=== PATIENT | female | born 1975 | race Caucasian/White ===

== ENCOUNTER 2016-05-22 22:04 | Inpatient (IN) | payer OTHER, BC ==
[~2016-05-22] VITALS: Ht 152.4 cm; Wt 103.6 kg
[~2016-05-22 22:04] MED LIST: CYANOCOBALAM1000 MCG PO; FISH OIL300 MG PO; FLUOXETINE HCL10 MG PO; LEVOTHYROXINE88 MCG PO; MOTRIN400 MG PO; PRENATAL VITAM1 EAC2 PO; PROAIR HFA8.5 GM IH; VITAMIN D-32000 UNI2 PO; VITAMIN D10000 UNIT PO; ZOFRAN ODT4 MG PO
[2016-05-22 22:55] LABS: HEMATOCRIT 36.8 % (36.0-46.0); MCH 30.3 PG (29.0-34.0); MCHC 34.8 G/DL (30.0-36.0); MCV 87.2 FL (83-99); PLATELET COUNT 318 K/uL (156-360); RBC DIS.WIDTH-CV 13.3 % (11.8-14.6); RBC DIS.WIDTH-SD 40.8 % (39-53); RED BLOOD COUNT 4.22 M/uL (3.80-5.20); WHITE BLOOD COUNT 11.6 K/uL (4.1-10.2)
[2016-05-22 23:05] LABS: CHLORIDE 107 mEq/L (99-109); POTASSIUM 3.3 mEq/L (3.7-5.4); SODIUM 138 mEq/L (136-147)
[2016-05-22 23:07] LABS: ADD MIUA? YES; BILIRUBIN NEGATIVE; BLOOD NEGATIVE; COLOR YELLOW ((YELLOW)); GLUCOSE (STRIP) NEGATIVE; KETONES NEGATIVE; LEUKOCYTES NEGATIVE; NITRITE NEGATIVE; PH, URINE 6.5 (5-8); PROTEIN (STRIP) TRACE; SPECIFIC GRAVITY 1.027 (1.000-1.030); UROBILINOGEN 0.2 MG/DL (0.2-1.0)
[2016-05-22 23:07] LABS: GLUCOSE 88 mg/dL (70-99)
[2016-05-22 23:08] LABS: ANION GAP 9 MEQ/L (2-14)
[2016-05-22 23:09] LABS: TOTAL BILIRUBIN 0.2 mg/dL (0.0-1.0)
[2016-05-22 23:11] LABS: ALKALINE PHOSPHATASE 63 IU/L (3-129); GFR ESTIMATE (CALCULATED) > 59 mL/min/
[2016-05-22 23:12] LABS: UREA NITROGEN (BUN) 8 mg/dL (9-23)
[2016-05-22 23:14] LABS: LIPASE 47 U/L (1.0-51.0)
[2016-05-22 23:32] LABS: AMORPHOUS PHOSPHATE CRYSTALS 1+; BACTERIA 1+; CASTS PRESENT /LPF; CRYSTALS PRESENT; EPITHELIAL CELLS RARE; FINE GRANULAR CASTS 0-5 /LPF; MUCUS NONE SEEN; RED BLOOD CELLS NONE SEEN /HPF (0-5); UCUL ADDED? NO; WHITE BLOOD CELLS NONE SEEN /HPF (0-5)
[2016-05-22 23:50] LABS: QUANTITATIVE HCG 70102.5 MIU/ML
[2016-05-23 04:00] VITALS: BP 103/50
[2016-05-23 08:00] VITALS: BP 95/51
[2016-05-23 12:04] LABS: HEMATOCRIT 33.3 % (36.0-46.0); MCH 30.9 PG (29.0-34.0); MCHC 34.8 G/DL (30.0-36.0); MCV 88.8 FL (83-99); PLATELET COUNT 261 K/uL (156-360); RBC DIS.WIDTH-CV 13.5 % (11.8-14.6); RBC DIS.WIDTH-SD 43.9 % (39-53); RED BLOOD COUNT 3.75 M/uL (3.80-5.20); WHITE BLOOD COUNT 10.5 K/uL (4.1-10.2)
[2016-05-23 16:15] VITALS: BP 111/54
[2016-05-23 19:45] VITALS: BP 112/58
[2016-05-23 23:47] VITALS: BP 123/61
[2016-05-24 03:44] VITALS: BP 114/57
[2016-05-24 07:23] LABS: HEMATOCRIT 33.9 % (36.0-46.0); MCH 30.6 PG (29.0-34.0); MCHC 34.2 G/DL (30.0-36.0); MCV 89.4 FL (83-99); MEAN PLAT.VOLUME 9.6 uM^3 (9.5-12.4); PLATELET COUNT 258 K/uL (156-360); RBC DIS.WIDTH-CV 13.4 % (11.8-14.6); RED BLOOD COUNT 3.79 M/uL (3.80-5.20)
[2016-05-24 07:31] LABS: ANION GAP 4 MEQ/L (2-14); CHLORIDE 104 MEQ/L (99-109); GFR ESTIMATE (CALCULATED) > 59 mL/min/; GLUCOSE 101 mg/dL (70-99); POTASSIUM 4.3 MEQ/L (3.7-5.4); SAMPLE HEMOLYSIS CHECK 0; SAMPLE ICTERIC CHECK 0; SAMPLE LIPEMIA CHECK 0; SODIUM 133 MEQ/L (136-147); UREA NITROGEN (BUN) 7 mg/dL (9-23)
[2016-05-24 08:00] VITALS: BP 129/67
[2016-05-24 11:38] VITALS: BP 121/64
[2016-05-24] MEDS ORDERED: MOVE IT ALONG100 MG PO (13:14)
[2016-05-24] MEDS ORDERED: TYLENOL REGULA325 MG PO (13:15)
[2016-05-24] MEDS ORDERED: BENADRYL25 MG PO (13:16)
[2016-05-24] MEDS ORDERED: HYDROMORPHONE HC2 MG PO (14:45)
== END 2016-05-24 15:41 | disposition home or self-care (01) | DRG 781 ==
LOC: RME 22:04 → EME 22:04 → EDOF 05-23 02:59 → 5WEST 05-23 03:48 → 2EAST 05-23 16:01
PROVIDERS: Surgery
PROC: 0DTJ4ZZ Resection of Appendix, Percutaneous Endoscopic Approach (ICD-10-PCS; principal; 2016-05-23)
DX: O99.611 Diseases of the digestive system complicating pregnancy, first trimester (principal); R10.31 Right lower quadrant pain; Z68.41 Body mass index [BMI] 40.0-44.9, adult; O99.331 Smoking (tobacco) complicating pregnancy, first trimester; O99.281 Endocrine, nutritional and metabolic diseases complicating pregnancy, first trimester; E03.9 Hypothyroidism, unspecified; F17.210 Nicotine dependence, cigarettes, uncomplicated; K66.0 Peritoneal adhesions (postprocedural) (postinfection); O99.211 Obesity complicating pregnancy, first trimester; E66.01 Morbid (severe) obesity due to excess calories; O21.1 Hyperemesis gravidarum with metabolic disturbance; Z3A.09 9 weeks gestation of pregnancy; Z88.6 Allergy status to analgesic agent; Z88.8 Allergy status to other drugs, medicaments and biological substances
CPT/HCPCS: 76705; 76801; 80048; 80053; 81003; 83690; 84702; 85027; 88304; 99202; 99281; 99285; J0131; J0330; J1100; J1170; J2270; J2405; J2710; J3010; J3480; J7030

== ENCOUNTER 2016-09-14 10:46 | Outpatient (CLI) | payer BC ==
[~2016-09-14] VITALS: Ht 177.8 cm; Wt 108.6 kg
[~2016-09-14 10:46] MED LIST changes: +BENADRYL25 MG PO; +HYDROMORPHONE HC2 MG PO; +MOVE IT ALONG100 MG PO; +TYLENOL REGULA325 MG PO
[2016-09-14 11:11] VITALS: BP 122/64
[2016-09-14 13:08] LABS: ADD MIUA? NO; BILIRUBIN NEGATIVE; BLOOD NEGATIVE; COLOR STRAW ((YELLOW)); GLUCOSE (STRIP) NEGATIVE; KETONES NEGATIVE; LEUKOCYTES NEGATIVE; NITRITE NEGATIVE; PROTEIN (STRIP) NEGATIVE; SPECIFIC GRAVITY 1.003 (1.000-1.030); UCUL ADDED? NO; UROBILINOGEN 0.2 MG/DL (0.2-1.0)
[2016-09-14 13:16] VITALS: BP 117/55
[2016-09-14] MEDS ORDERED: LEVO-T25 MCG PO (13:25)
[2016-09-14] MEDS ORDERED: TYLENOL EXTRA500 MG PO (13:27)
[2016-09-14 13:30] LABS: BASOPHIL COUNT 0.1 K/uL (0-0.1); EOSINOPHIL COUNT 0.3 K/uL (0-0.3); HEMATOCRIT 35.3 % (36.0-46.0); IMMATURE GRANULOCYTE (%) 0.8 % (0.0-0.7); IMMATURE GRANULOCYTE COUNT 0.1 K/uL; INSTRUMENT ABS NEUTROPHIL CT 10.5 K/uL; LYMPHOCYTE COUNT 2.8 K/uL (1.0-2.8); MCH 31.4 PG (29.0-34.0); MCHC 34.8 G/DL (30.0-36.0); MCV 90.1 FL (83-99); MEAN PLAT.VOLUME 9.3 uM^3 (9.5-12.4); MONOCYTE (%) 3.9 % (3-12); MONOCYTE COUNT 0.6 K/uL (0-0.8); NEUTROPHIL (%) 73.5 % (45-76); NEUTROPHIL COUNT 10.5 K/uL (1.8-6.4); PLATELET COUNT 294 K/uL (156-360); RBC DIS.WIDTH-CV 13.3 % (11.8-14.6); RBC DIS.WIDTH-SD 44.1 % (39-53); RED BLOOD COUNT 3.92 M/uL (3.80-5.20); WHITE BLOOD COUNT 14.3 K/uL (4.1-10.2)
[2016-09-14 15:16] VITALS: BP 124/61
[2016-09-14 16:43] LABS: AMPHETAMINES QUANT VALUE 0 NG/ML; BARBITUATES QUANT VALUE 0 NG/ML; BENZODIAZEPINES QUANT VALUE 0 NG/ML; BENZODIAZEPINES, URINE SCREEN Negative (200 ng/mL); MARIJUANA QUANT VALUE 0 NG/ML; OPIATES QUANTITATIVE VALUE 0 NG/ML; PHENCYCLIDINE QUANT VALUE 0 NG/ML
[2016-09-14 20:19] LABS: CANDIDA DNA PROBE NEGATIVE; GARDNERELLA DNA PROBE NEGATIVE; INTERNAL CONTROL VALID? YES
[2016-09-15 12:32] LABS: CHLAMYDIA TRACHOMATIS NEGATIVE; NEISSERIA GONORRHOEAE NEGATIVE
== END 2016-09-14 16:50 | disposition home or self-care (01) ==
LOC: LDRP-OP 10:46 → 2WEST 10:47
PROVIDERS: Advanced Practice Midwife; Obstetrics & Gynecology Obstetrics
DX: O60.02 Preterm labor without delivery, second trimester (principal); Z3A.24 24 weeks gestation of pregnancy; O09.522 Supervision of elderly multigravida, second trimester; O99.282 Endocrine, nutritional and metabolic diseases complicating pregnancy, second trimester; E03.9 Hypothyroidism, unspecified; O99.332 Smoking (tobacco) complicating pregnancy, second trimester; F17.200 Nicotine dependence, unspecified, uncomplicated; Q63.0 Accessory kidney
CPT/HCPCS: 59025; 76805; 80306 90; 81003; 82731; 84439; 84443; 85025; 87086; 87480; 87491; 87510; 87591; 87660; G0378; J7120

== ENCOUNTER 2016-11-19 19:08 | Outpatient (CLI) | payer BC ==
[~2016-11-19 19:08] MED LIST changes: +LEVO-T25 MCG PO; +TYLENOL EXTRA500 MG PO
[2016-11-19 19:30] VITALS: BP 124/65
[2016-11-19 20:00] VITALS: BP 121/69
[2016-11-19 20:13] LABS: BASOPHIL COUNT 0.1 K/uL (0-0.1); EOSINOPHIL COUNT 0.4 K/uL (0-0.3); HEMATOCRIT 34.3 % (36.0-46.0); IMMATURE GRANULOCYTE (%) 1.1 % (0.0-0.7); IMMATURE GRANULOCYTE COUNT 0.2 K/uL; INSTRUMENT ABS NEUTROPHIL CT 13.4 K/uL; LYMPHOCYTE COUNT 3.9 K/uL (1.0-2.8); MCH 32.4 PG (29.0-34.0); MCHC 36.2 G/DL (30.0-36.0); MCV 89.6 FL (83-99); MEAN PLAT.VOLUME 9.6 uM^3 (9.5-12.4); MONOCYTE (%) 4.3 % (3-12); MONOCYTE COUNT 0.8 K/uL (0-0.8); NEUTROPHIL (%) 71.6 % (45-76); NEUTROPHIL COUNT 13.4 K/uL (1.8-6.4); PLATELET COUNT 309 K/uL (156-360); RBC DIS.WIDTH-CV 13.5 % (11.8-14.6); RBC DIS.WIDTH-SD 44.1 % (39-53); RED BLOOD COUNT 3.83 M/uL (3.80-5.20); WHITE BLOOD COUNT 18.7 K/uL (4.1-10.2)
[2016-11-19 20:15] LABS: ADD MIUA? YES; BILIRUBIN NEGATIVE; BLOOD NEGATIVE; COLOR YELLOW ((YELLOW)); GLUCOSE (STRIP) NEGATIVE; KETONES NEGATIVE; LEUKOCYTES NEGATIVE; NITRITE NEGATIVE; PROTEIN (STRIP) NEGATIVE; SPECIFIC GRAVITY 1.011 (1.000-1.030); UROBILINOGEN 0.2 MG/DL (0.2-1.0)
[2016-11-19 20:30] LABS: UR CREATININE CONCENTRATION 83.6 MG/DL
[2016-11-19 20:31] VITALS: BP 118/65
[2016-11-19 20:36] LABS: ALKALINE PHOSPHATASE 107 IU/L (3-129); ANION GAP 7 MEQ/L (2-14); CHLORIDE 103 MEQ/L (99-109); GFR ESTIMATE (CALCULATED) > 59 mL/min/; GLUCOSE 98 mg/dL (70-99); LACTATE DEHYDROGENASE 115 IU/L (20-246); POTASSIUM 2.9 MEQ/L (3.7-5.4); SAMPLE HEMOLYSIS CHECK 0; SAMPLE ICTERIC CHECK 0; SAMPLE LIPEMIA CHECK 0; SODIUM 134 MEQ/L (136-147); TOTAL BILIRUBIN 0.2 MG/DL (0.0-1.0); UREA NITROGEN (BUN) 5 mg/dL (9-23); URIC ACID 3.4 mg/dL (3.1-9.2)
[2016-11-19 20:41] LABS: BACTERIA RARE /HPF; EPITHELIAL CELLS NONE SEEN /HPF; MUCUS 1+ /LPF; RED BLOOD CELLS 0-5 /HPF (0-5); UCUL ADDED? NO; WHITE BLOOD CELLS 0-5 /HPF (0-5)
[2016-11-19 21:01] VITALS: BP 114/58
[2016-11-19 21:31] VITALS: BP 112/56
== END 2016-11-19 22:15 | disposition home or self-care (01) ==
LOC: LDRP-OP 19:08 → 2WEST 19:09 → LDRP-OP 01-30 17:28
PROVIDERS: Advanced Practice Midwife
DX: O26.893 Other specified pregnancy related conditions, third trimester (principal); R51 Headache; O12.03 Gestational edema, third trimester; Z3A.34 34 weeks gestation of pregnancy; R10.9 Unspecified abdominal pain; H53.8 Other visual disturbances; K21.9 Gastro-esophageal reflux disease without esophagitis; O99.283 Endocrine, nutritional and metabolic diseases complicating pregnancy, third trimester; E03.9 Hypothyroidism, unspecified; Q63.0 Accessory kidney; O99.333 Smoking (tobacco) complicating pregnancy, third trimester; F17.210 Nicotine dependence, cigarettes, uncomplicated
CPT/HCPCS: 59025; 80053; 81003; 82570; 83615; 84156; 84550; 85025; 87086; G0378

== ENCOUNTER 2016-11-21 20:15 | Outpatient (CLI) | payer BC ==
[~2016-11-21] VITALS: Ht 177.8 cm; Wt 116.6 kg
[2016-11-21 20:31] VITALS: BP 134/71
[2016-11-21] MEDS ORDERED: K-TAB10 MEQ PO (20:41)
[2016-11-21 22:03] LABS: BASOPHIL COUNT 0.1 K/uL (0-0.1); EOSINOPHIL (%) 1.5 % (0-5); EOSINOPHIL COUNT 0.3 K/uL (0-0.3); HEMATOCRIT 38.7 % (36.0-46.0); IMMATURE GRANULOCYTE (%) 1.1 % (0.0-0.7); IMMATURE GRANULOCYTE COUNT 0.2 K/uL; INSTRUMENT ABS NEUTROPHIL CT 14.5 K/uL; LYMPHOCYTE COUNT 4.2 K/uL (1.0-2.8); MCH 31.4 PG (29.0-34.0); MCHC 35.1 G/DL (30.0-36.0); MCV 89.4 FL (83-99); MEAN PLAT.VOLUME 9.8 uM^3 (9.5-12.4); MONOCYTE (%) 4.1 % (3-12); MONOCYTE COUNT 0.8 K/uL (0-0.8); NEUTROPHIL (%) 72.4 % (45-76); NEUTROPHIL COUNT 14.5 K/uL (1.8-6.4); PLATELET COUNT 338 K/uL (156-360); RBC DIS.WIDTH-CV 13.3 % (11.8-14.6); RBC DIS.WIDTH-SD 43.6 % (39-53); RED BLOOD COUNT 4.33 M/uL (3.80-5.20); WHITE BLOOD COUNT 20.1 K/uL (4.1-10.2)
[2016-11-21 22:32] LABS: ADD MIUA? NO; BILIRUBIN NEGATIVE; BLOOD NEGATIVE; COLOR YELLOW ((YELLOW)); GLUCOSE (STRIP) NEGATIVE; KETONES NEGATIVE; LEUKOCYTES NEGATIVE; NITRITE NEGATIVE; PROTEIN (STRIP) NEGATIVE; SPECIFIC GRAVITY 1.005 (1.000-1.030); UROBILINOGEN 0.2 MG/DL (0.2-1.0)
[2016-11-21 22:46] LABS: ALKALINE PHOSPHATASE 116 IU/L (3-129); ANION GAP 11 MEQ/L (2-14); CHLORIDE 103 MEQ/L (99-109); GFR ESTIMATE (CALCULATED) > 59 mL/min/; GLUCOSE 87 mg/dL (70-99); SAMPLE HEMOLYSIS CHECK 0; SAMPLE ICTERIC CHECK 0; SAMPLE LIPEMIA CHECK 0; SODIUM 134 MEQ/L (136-147); UREA NITROGEN (BUN) 5 mg/dL (9-23)
[2016-11-21 22:47] LABS: POTASSIUM 3.5 MEQ/L (3.7-5.4); TOTAL BILIRUBIN 0.3 MG/DL (0.0-1.0)
[2016-11-21 22:49] LABS: AMPHETAMINE NEGATIVE (500 ng/mL); BARBITURATES NEGATIVE (200 ng/mL); BENZODIAZEPINES NEGATIVE (150 ng/mL); COCAINE NEGATIVE (150 ng/mL); INTERNAL CONTROLS VALID? YES; METHADONE NEGATIVE (200 ng/mL); METHAMPHETAMINE NEGATIVE (500 ng/mL); OPIATES (MORPHINE) NEGATIVE (100 ng/mL); OXYCODONE NEGATIVE (100 ng/mL); PHENCYCLIDINE NEGATIVE (25 ng/mL); PROPOXYPHENE NEGATIVE (300 ng/mL); THC CANNABINOIDS NEGATIVE (50 ng/mL); TRICYCLIC ANTIDEPRESSANTS NEGATIVE (300 ng/mL)
[2016-11-21 23:22] VITALS: BP 115/65
[2016-11-22 00:35] LABS: INFLUENZA A VIRAL ANTIGEN NEGATIVE; INFLUENZA B VIRAL ANTIGEN NEGATIVE
[2016-11-22 02:31] VITALS: BP 123/57
== END 2016-11-22 04:00 | disposition home or self-care (01) ==
LOC: LDRP-OP 20:15 → 2WEST 20:17 → LDRP-OP 01-30 23:15
PROVIDERS: Advanced Practice Midwife; Obstetrics & Gynecology
DX: O26.893 Other specified pregnancy related conditions, third trimester (principal); R60.0 Localized edema; R51 Headache; E87.6 Hypokalemia; R07.89 Other chest pain; R00.0 Tachycardia, unspecified; R53.1 Weakness; O09.523 Supervision of elderly multigravida, third trimester; Z3A.34 34 weeks gestation of pregnancy
CPT/HCPCS: 59025; 71020; 71275; 80053; 81003; 84132; 84443; 85025; 87086; 87502; 93005; G0378; J2765

== ENCOUNTER 2016-12-12 13:38 | Outpatient (CLI) | payer BC ==
[~2016-12-12 13:38] MED LIST changes: +K-TAB10 MEQ PO
[2016-12-12] MEDS ORDERED: ZANTAC150 MG PO (14:05)
[2016-12-12] MEDS ORDERED: LEVO-T125 MCG PO (14:06)
[2016-12-12 14:07] VITALS: BP 118/66
[2016-12-12 14:30] LABS: BASOPHIL COUNT 0.1 K/uL (0-0.1); EOSINOPHIL (%) 1.4 % (0-5); EOSINOPHIL COUNT 0.2 K/uL (0-0.3); HEMATOCRIT 36.3 % (36.0-46.0); IMMATURE GRANULOCYTE (%) 0.9 % (0.0-0.7); IMMATURE GRANULOCYTE COUNT 0.2 K/uL; INSTRUMENT ABS NEUTROPHIL CT 12.8 K/uL; MCH 31.5 PG (29.0-34.0); MCV 90.1 FL (83-99); MEAN PLAT.VOLUME 9.6 uM^3 (9.5-12.4); MONOCYTE (%) 4.5 % (3-12); MONOCYTE COUNT 0.8 K/uL (0-0.8); NEUTROPHIL (%) 75.3 % (45-76); NEUTROPHIL COUNT 12.8 K/uL (1.8-6.4); PLATELET COUNT 324 K/uL (156-360); RBC DIS.WIDTH-CV 13.5 % (11.8-14.6); RED BLOOD COUNT 4.03 M/uL (3.80-5.20); WHITE BLOOD COUNT 16.9 K/uL (4.1-10.2)
[2016-12-12 14:47] LABS: ANION GAP 11 MEQ/L (2-14); CHLORIDE 106 MEQ/L (99-109); POTASSIUM 3.3 MEQ/L (3.7-5.4); SAMPLE HEMOLYSIS CHECK 0; SAMPLE ICTERIC CHECK 0; SAMPLE LIPEMIA CHECK 0; SODIUM 137 MEQ/L (136-147); TOTAL BILIRUBIN 0.2 MG/DL (0.0-1.0)
[2016-12-12 14:48] LABS: ADD MIUA? NO; BILIRUBIN NEGATIVE; BLOOD NEGATIVE; COLOR YELLOW ((YELLOW)); GLUCOSE (STRIP) NEGATIVE; KETONES NEGATIVE; LEUKOCYTES NEGATIVE; NITRITE NEGATIVE; PROTEIN (STRIP) NEGATIVE; SPECIFIC GRAVITY 1.004 (1.000-1.030); UROBILINOGEN 0.2 MG/DL (0.2-1.0)
[2016-12-12 14:53] LABS: ALKALINE PHOSPHATASE 117 IU/L (3-129); GFR ESTIMATE (CALCULATED) > 59 mL/min/; GLUCOSE 87 mg/dL (70-99); UREA NITROGEN (BUN) 6 mg/dL (9-23)
[2016-12-12] MEDS ORDERED: METRONIDAZOLE500 MG PO (16:26)
[2016-12-12 16:30] LABS: CANDIDA DNA PROBE NEGATIVE; GARDNERELLA DNA PROBE NEGATIVE; INTERNAL CONTROL VALID? YES
[2016-12-13 14:04] LABS: CHLAMYDIA TRACHOMATIS NEGATIVE; NEISSERIA GONORRHOEAE NEGATIVE
== END 2016-12-12 17:21 | disposition home or self-care (01) ==
LOC: LDRP-OP 13:38 → 2WEST 13:39 → LDRP-OP 01-30 04:21
PROVIDERS: Advanced Practice Midwife; Obstetrics & Gynecology
DX: O99.283 Endocrine, nutritional and metabolic diseases complicating pregnancy, third trimester (principal); E03.9 Hypothyroidism, unspecified; E87.6 Hypokalemia; Z3A.34 34 weeks gestation of pregnancy
CPT/HCPCS: 59025; 80053; 81003; 85025; 87086; 87480; 87491; 87510; 87591; 87660; G0378; J7120

== ENCOUNTER 2016-12-15 17:50 | Outpatient (CLI) | payer BC ==
[~2016-12-15] VITALS: Ht 177.8 cm; Wt 121.0 kg
[~2016-12-15 17:50] MED LIST changes: +LEVO-T125 MCG PO; +METRONIDAZOLE500 MG PO; +ZANTAC150 MG PO
[2016-12-15 18:07] VITALS: BP 135/78
[2016-12-15 18:56] LABS: BASOPHIL COUNT 0.1 K/uL (0-0.1); EOSINOPHIL (%) 1.8 % (0-5); EOSINOPHIL COUNT 0.3 K/uL (0-0.3); HEMATOCRIT 36.2 % (36.0-46.0); IMMATURE GRANULOCYTE (%) 1.1 % (0.0-0.7); IMMATURE GRANULOCYTE COUNT 0.2 K/uL; LYMPHOCYTE COUNT 2.9 K/uL (1.0-2.8); MCH 31.4 PG (29.0-34.0); MCHC 35.1 G/DL (30.0-36.0); MCV 89.4 FL (83-99); MEAN PLAT.VOLUME 9.6 uM^3 (9.5-12.4); MONOCYTE (%) 4.8 % (3-12); MONOCYTE COUNT 0.7 K/uL (0-0.8); NEUTROPHIL (%) 72.6 % (45-76); PLATELET COUNT 327 K/uL (156-360); RBC DIS.WIDTH-CV 13.5 % (11.8-14.6); RBC DIS.WIDTH-SD 44.3 % (39-53); RED BLOOD COUNT 4.05 M/uL (3.80-5.20); WHITE BLOOD COUNT 15.2 K/uL (4.1-10.2)
[2016-12-15 19:44] LABS: ADD MIUA? YES; BILIRUBIN NEGATIVE; BLOOD SMALL; COLOR STRAW ((YELLOW)); GLUCOSE (STRIP) NEGATIVE; KETONES NEGATIVE; LEUKOCYTES NEGATIVE; NITRITE NEGATIVE; PROTEIN (STRIP) NEGATIVE; SPECIFIC GRAVITY 1.005 (1.000-1.030); UROBILINOGEN 0.2 MG/DL (0.2-1.0)
[2016-12-15 20:20] VITALS: BP 119/77
[2016-12-15 20:22] LABS: BACTERIA NONE SEEN /HPF; EPITHELIAL CELLS RARE /HPF; MUCUS TRACE /LPF; RED BLOOD CELLS 0-5 /HPF (0-5); UCUL ADDED? NO; WHITE BLOOD CELLS 0-5 /HPF (0-5)
== END 2016-12-15 20:35 | disposition home or self-care (01) ==
LOC: LDRP-OP 17:50 → 2WEST 17:51 → LDRP-OP 01-30 17:27
PROVIDERS: Advanced Practice Midwife
DX: O47.1 False labor at or after 37 completed weeks of gestation (principal); O09.523 Supervision of elderly multigravida, third trimester; Z3A.37 37 weeks gestation of pregnancy; O99.283 Endocrine, nutritional and metabolic diseases complicating pregnancy, third trimester; E03.9 Hypothyroidism, unspecified; Q63.0 Accessory kidney; E87.6 Hypokalemia; R51 Headache
CPT/HCPCS: 59025; 81003; 85025; G0378

== ENCOUNTER 2016-12-21 07:10 | Outpatient (CLI) | payer BC ==
[2016-12-21] VITALS (8 sets, daily range): BP systolic 114–162; BP diastolic 64–78
[~2016-12-21] VITALS: Ht 177.8 cm; Wt 119.7 kg
[2016-12-21 08:40] LABS: BASOPHIL COUNT 0.1 K/uL (0-0.1); EOSINOPHIL (%) 1.3 % (0-5); EOSINOPHIL COUNT 0.2 K/uL (0-0.3); HEMATOCRIT 37.7 % (36.0-46.0); IMMATURE GRANULOCYTE (%) 1.1 % (0.0-0.7); IMMATURE GRANULOCYTE COUNT 0.2 K/uL; INSTRUMENT ABS NEUTROPHIL CT 13.1 K/uL; LYMPHOCYTE COUNT 2.7 K/uL (1.0-2.8); MCH 32.1 PG (29.0-34.0); MCHC 35.5 G/DL (30.0-36.0); MCV 90.4 FL (83-99); MEAN PLAT.VOLUME 9.8 uM^3 (9.5-12.4); MONOCYTE (%) 3.8 % (3-12); MONOCYTE COUNT 0.6 K/uL (0-0.8); NEUTROPHIL (%) 77.5 % (45-76); NEUTROPHIL COUNT 13.1 K/uL (1.8-6.4); PLATELET COUNT 333 K/uL (156-360); RBC DIS.WIDTH-SD 46.2 % (39-53); RED BLOOD COUNT 4.17 M/uL (3.80-5.20); WHITE BLOOD COUNT 16.9 K/uL (4.1-10.2)
[2016-12-21 08:49] LABS: ADD MIUA? YES; BILIRUBIN NEGATIVE; BLOOD NEGATIVE; COLOR YELLOW ((YELLOW)); GLUCOSE (STRIP) NEGATIVE; KETONES NEGATIVE; LEUKOCYTES NEGATIVE; NITRITE NEGATIVE; PROTEIN (STRIP) NEGATIVE; SPECIFIC GRAVITY 1.011 (1.000-1.030); UROBILINOGEN 0.2 MG/DL (0.2-1.0)
[2016-12-21 08:50] LABS: ANION GAP 10 MEQ/L (2-14); CHLORIDE 105 MEQ/L (99-109); POTASSIUM 3.7 MEQ/L (3.7-5.4); SAMPLE HEMOLYSIS CHECK 0; SAMPLE ICTERIC CHECK 0; SAMPLE LIPEMIA CHECK 0; SODIUM 135 MEQ/L (136-147); TOTAL BILIRUBIN 0.3 MG/DL (0.0-1.0)
[2016-12-21 08:51] LABS: BACTERIA NONE SEEN /HPF; EPITHELIAL CELLS RARE /HPF; MUCUS TRACE /LPF; RED BLOOD CELLS 0-5 /HPF (0-5); UCUL ADDED? NO; WHITE BLOOD CELLS 0-5 /HPF (0-5)
[2016-12-21 08:56] LABS: ALKALINE PHOSPHATASE 131 IU/L (3-129); GFR ESTIMATE (CALCULATED) > 59 mL/min/; GLUCOSE 80 mg/dL (70-99); LACTATE DEHYDROGENASE 144 IU/L (20-246); UREA NITROGEN (BUN) 5 mg/dL (9-23); URIC ACID 4.3 mg/dL (3.1-9.2)
== END 2016-12-21 11:15 | disposition home or self-care (01) ==
LOC: LDRP-OP 07:10 → 2WEST 07:11 → LDRP-OP 01-30 14:20
PROVIDERS: Advanced Practice Midwife
DX: O47.1 False labor at or after 37 completed weeks of gestation (principal); O09.523 Supervision of elderly multigravida, third trimester; Z3A.38 38 weeks gestation of pregnancy; Q63.0 Accessory kidney; O99.283 Endocrine, nutritional and metabolic diseases complicating pregnancy, third trimester; E03.9 Hypothyroidism, unspecified; O99.213 Obesity complicating pregnancy, third trimester; E66.9 Obesity, unspecified; E87.6 Hypokalemia
CPT/HCPCS: 59025; 80053; 81003; 82570; 83615; 84156; 84550; 85025; G0378

== ENCOUNTER 2016-12-22 21:59 | Inpatient (IN) | payer BC ==
[~2016-12-22] VITALS: Ht 177.8 cm; Wt 120.0 kg
[2016-12-22 22:19] VITALS: BP 127/71
[2016-12-22 23:11] VITALS: BP 129/70
[2016-12-23] VITALS (28 sets, daily range): BP systolic 99–137; BP diastolic 54–81
[2016-12-23 00:15] LABS: BASOPHIL COUNT 0.1 K/uL (0-0.1); EOSINOPHIL (%) 1.6 % (0-5); EOSINOPHIL COUNT 0.3 K/uL (0-0.3); HEMATOCRIT 36.7 % (36.0-46.0); IMMATURE GRANULOCYTE (%) 1.2 % (0.0-0.7); IMMATURE GRANULOCYTE COUNT 0.2 K/uL; INSTRUMENT ABS NEUTROPHIL CT 13.4 K/uL; LYMPHOCYTE COUNT 3.7 K/uL (1.0-2.8); MCH 31.4 PG (29.0-34.0); MCHC 34.6 G/DL (30.0-36.0); MCV 90.8 FL (83-99); MEAN PLAT.VOLUME 9.7 uM^3 (9.5-12.4); MONOCYTE (%) 4.4 % (3-12); MONOCYTE COUNT 0.8 K/uL (0-0.8); NEUTROPHIL (%) 72.5 % (45-76); NEUTROPHIL COUNT 13.4 K/uL (1.8-6.4); PLATELET COUNT 338 K/uL (156-360); RBC DIS.WIDTH-CV 13.6 % (11.8-14.6); RBC DIS.WIDTH-SD 45.3 % (39-53); RED BLOOD COUNT 4.04 M/uL (3.80-5.20); WHITE BLOOD COUNT 18.5 K/uL (4.1-10.2)
[2016-12-23 00:33] LABS: CHLORIDE 105 mEq/L (99-109); SODIUM 137 mEq/L (136-147)
[2016-12-23 00:35] LABS: GLUCOSE 82 mg/dL (70-99)
[2016-12-23 00:36] LABS: ANION GAP 10 MEQ/L (2-14)
[2016-12-23 00:37] LABS: TOTAL BILIRUBIN 0.2 mg/dL (0.0-1.0)
[2016-12-23 00:38] LABS: ALKALINE PHOSPHATASE 145 IU/L (3-129)
[2016-12-23 00:39] LABS: GFR ESTIMATE (CALCULATED) > 59 mL/min/
[2016-12-23 00:40] LABS: UREA NITROGEN (BUN) 7 mg/dL (9-23)
[2016-12-24] VITALS (8 sets, daily range): BP systolic 98–126; BP diastolic 54–78
[2016-12-24 06:05] LABS: BASOPHIL COUNT 0.1 K/uL (0-0.1); EOSINOPHIL (%) 0.7 % (0-5); EOSINOPHIL COUNT 0.2 K/uL (0-0.3); HEMATOCRIT 32.3 % (36.0-46.0); IMMATURE GRANULOCYTE (%) 0.9 % (0.0-0.7); IMMATURE GRANULOCYTE COUNT 0.2 K/uL; INSTRUMENT ABS NEUTROPHIL CT 17.4 K/uL; MCH 31.3 PG (29.0-34.0); MCHC 34.1 G/DL (30.0-36.0); MEAN PLAT.VOLUME 10.1 uM^3 (9.5-12.4); MONOCYTE (%) 5.1 % (3-12); MONOCYTE COUNT 1.1 K/uL (0-0.8); NEUTROPHIL (%) 79.3 % (45-76); NEUTROPHIL COUNT 17.4 K/uL (1.8-6.4); PLATELET COUNT 298 K/uL (156-360); RBC DIS.WIDTH-CV 13.6 % (11.8-14.6); RBC DIS.WIDTH-SD 45.6 % (39-53); RED BLOOD COUNT 3.51 M/uL (3.80-5.20); WHITE BLOOD COUNT 21.9 K/uL (4.1-10.2)
[2016-12-25 02:39] VITALS: BP 101/53
[2016-12-25] MEDS ORDERED: DOCUSATE SODIU100 MG PO (09:35)
[2016-12-25] MEDS ORDERED: ENDOCET 5-3251 EACH PO (09:35)
[2016-12-25] MEDS ORDERED: LEXAPRO10 MG PO (10:11)
[2016-12-25 11:08] VITALS: BP 120/58
[2016-12-25 15:06] VITALS: BP 122/58
== END 2016-12-25 17:38 | disposition home or self-care (01) | DRG 765 ==
LOC: LDRP-OP 21:59 → 2WEST 22:01 → LDRP-OP 12-23 00:19 → 2WEST 12-23 20:41 → LDRP-OP 01-30 12:38
PROVIDERS: Advanced Practice Midwife; Obstetrics & Gynecology
PROC: 10D00Z1 Extraction of Products of Conception, Low, Open Approach (ICD-10-PCS; principal; 2016-12-23)
DX: O99.214 Obesity complicating childbirth (principal); F33.9 Major depressive disorder, recurrent, unspecified; Z37.0 Single live birth; Z3A.39 39 weeks gestation of pregnancy; F41.9 Anxiety disorder, unspecified; O99.344 Other mental disorders complicating childbirth; E03.9 Hypothyroidism, unspecified; E66.9 Obesity, unspecified; O99.284 Endocrine, nutritional and metabolic diseases complicating childbirth; O62.1 Secondary uterine inertia; O64.0XX0 Obstructed labor due to incomplete rotation of fetal head, not applicable or unspecified; O32.4XX1 Maternal care for high head at term, fetus 1; Z68.37 Body mass index [BMI] 37.0-37.9, adult
CPT/HCPCS: 80053; 85025; 86900; 86901; 86920; C1755; G0378; J0690; J2175; J2250; J2274; J2405; J3010; J7050; J7120

== ENCOUNTER 2017-09-21 17:55 | Emergency (ER) | payer OTHER ==
[~2017-09-21] VITALS: Ht 177.8 cm; Wt 107.2 kg
[~2017-09-21 17:55] MED LIST changes: +DOCUSATE SODIU100 MG PO; +ENDOCET 5-3251 EACH PO; +LEXAPRO10 MG PO
[2017-09-21 18:35] LABS: HEMATOCRIT 36.3 % (36.0-46.0); HEMOGLOBIN 12.7 G/DL (11.9-15.5); MCH 30.8 PG (29.0-34.0); MCV 87.9 FL (83-99); PLATELET COUNT 329 K/uL (156-360); RBC DIS.WIDTH-CV 13.1 % (11.8-14.6); RBC DIS.WIDTH-SD 42.3 % (39-53); RED BLOOD COUNT 4.13 M/uL (3.80-5.20); WHITE BLOOD COUNT 12.6 K/uL (4.1-10.2)
[2017-09-21 18:50] LABS: ALBUMIN 3.7 g/dL (3.2-4.8); CHLORIDE 106 mEq/L (99-109); POTASSIUM 3.7 mEq/L (3.7-5.4); SODIUM 140 mEq/L (136-147)
[2017-09-21 18:52] LABS: GLUCOSE 89 mg/dL (70-99)
[2017-09-21 18:53] LABS: TOTAL PROTEIN 5.9 g/dL (6.4-8.3)
[2017-09-21 18:54] LABS: TOTAL BILIRUBIN 0.2 mg/dL (0.0-1.0)
[2017-09-21 18:56] LABS: ALKALINE PHOSPHATASE 92 IU/L (3-129); CREATININE 0.8 mg/dL (0.6-1.3); GFR ESTIMATE (CALCULATED) > 59 mL/min/
[2017-09-21 18:57] LABS: UREA NITROGEN (BUN) 10 mg/dL (9-23)
[2017-09-21 18:58] LABS: AST (GOT) 10 IU/L (2-34)
[2017-09-21 18:59] LABS: ALT (GPT) 10 IU/L (3-49)
[2017-09-21 19:05] LABS: QUANTITATIVE HCG < 4.0 MIU/ML
[2017-09-21 19:15] LABS: APPEARANCE CLEAR ((CLEAR)); BILIRUBIN NEGATIVE; BLOOD NEGATIVE; COLOR YELLOW ((YELLOW)); GLUCOSE (STRIP) NEGATIVE; KETONES NEGATIVE; LEUKOCYTES NEGATIVE; NITRITE NEGATIVE; PROTEIN (STRIP) NEGATIVE; SPECIFIC GRAVITY 1.013 (1.000-1.030); UCUL ADDED? NO; UROBILINOGEN 0.2 MG/DL (0.2-1.0)
[2017-09-21] MEDS ORDERED: NAPROXEN500 MG PO (20:43)
[2017-09-21] MEDS ORDERED: ZOFRAN ODT4 MG PO (20:43)
[2017-09-21] MEDS ORDERED: BENTYL10 MG PO (20:43)
[2017-09-21 20:59] VITALS: BP 115/58
== END 2017-09-21 21:00 | disposition home or self-care (01) ==
LOC: EME 17:55
PROVIDERS: Physician Assistant Medical
DX: R10.9 Unspecified abdominal pain (principal); N83.8 Other noninflammatory disorders of ovary, fallopian tube and broad ligament; N32.89 Other specified disorders of bladder; E03.9 Hypothyroidism, unspecified; F41.9 Anxiety disorder, unspecified; F32.9 Major depressive disorder, single episode, unspecified; F17.200 Nicotine dependence, unspecified, uncomplicated; Z87.440 Personal history of urinary (tract) infections; Z90.49 Acquired absence of other specified parts of digestive tract; Z88.5 Allergy status to narcotic agent; Z88.8 Allergy status to other drugs, medicaments and biological substances
CPT/HCPCS: 74176; 80053; 81003; 84702; 85027; 99281; 99284